=== PATIENT | female | born 1995 | race Two or more races ===

== ENCOUNTER 2021-10-05 12:35 | Outpatient (CLI) | payer OTHER ==
[~2021-10-05] VITALS: Ht 154.9 cm; Wt 68.5 kg
[2021-10-05] MEDS ORDERED: PRENTAB9 PO (12:55)
[2021-10-05] MEDS ORDERED: HOME MED LIST COMPLETE! XX SCH (12:55)
[2021-10-05 13:03] VITALS: BP 112/67
[2021-10-05] MEDS ORDERED: FLUCONAZOLE 50MG TABLET PO ONE (14:20)
[2021-10-05 14:44] LABS: APPEARANCE, URINE CLEAR (CLEAR); BACTERIA, URINE AUTO 1+ (NEGATIVE); BILIRUBIN, URINE AUTO NEGATIVE (NEGATIVE); BLOOD, URINE BLOOD NEGATIVE (NEGATIVE); COLOR, URINE STRAW (YELLOW); GLUCOSE, URINE (UA) AUTO NEGATIVE (NEGATIVE); KETONE, URINE AUTO TRACE mg/dL (NEGATIVE); LEUKOCYTE ESTERASE, URINE AUTO NEGATIVE (NEGATIVE); NITRITE, URINE AUTO NEGATIVE (NEGATIVE); PROTEIN, URINE AUTO NEGATIVE (NEGATIVE); RBC, URINE AUTO 0 /HPF (0-3); SPECIFIC GRAVITY URINE AUTO 1.001 (1.002-1.035); SQUAMOUS EPITHELIAL CELL UR AU 0 /HPF (0-6); UROBILINOGEN, URINE AUTO 0.2 mg/dL (0.0-2.0); WBC, URINE AUTO 0 /HPF (0-3)
[2021-10-05 16:36] VITALS: BP 101/62
[2021-10-05 17:44] LABS: HEMATOCRIT 34.2 % (36.0-47.0); HEMOGLOBIN 11.6 g/dl (12.0-15.5); MEAN CORPUSCULAR HEMOGLOBIN 28.9 pg (27.0-33.0); MEAN CORPUSCULAR HGB CONC 33.9 g/dl (32.0-36.5); MEAN CORPUSCULAR VOLUME 85.3 fl (80.0-96.0); PLATELET COUNT, AUTOMATED 193 10^3/uL (150-450); RED BLOOD COUNT 4.01 10^6/uL (4.00-5.40); WHITE BLOOD COUNT 11.4 10^3/uL (4.0-10.0)
[2021-10-05 17:57] LABS: INR 0.95; PROTHROMBIN TIME 13.1 SECONDS (12.7-14.5)
== END 2021-10-05 18:10 | disposition home or self-care (01) ==
LOC: M LDO 12:35
PROVIDERS: ATTEND Advanced Practice Midwife
DX: O26.893 Other specified pregnancy related conditions, third trimester (principal); R25.2 Cramp and spasm; Z3A.32 32 weeks gestation of pregnancy
CPT/HCPCS: 36415; 59025; 76815; 76820; 81001; 85027; 85384; 85610; 85730; 87086; G0378; G0463

== ENCOUNTER 2023-09-26 11:42 | Outpatient (CLI) | payer OTHER ==
[~2023-09-26] VITALS: Ht 154.9 cm; Wt 66.1 kg
[~2023-09-26 11:42] MED LIST: PRENTAB9 PO
[2023-09-26] MEDS: LR 1,000 ML IV ONE (12:36)
== END 2023-09-26 14:30 | disposition home or self-care (01) ==
LOC: M LDO 11:42
PROVIDERS: ATTEND Obstetrics & Gynecology
DX: O26.892 Other specified pregnancy related conditions, second trimester (principal); R25.2 Cramp and spasm; Z3A.23 23 weeks gestation of pregnancy
CPT/HCPCS: 59025; 81001; G0463

== ENCOUNTER → 2023-11-01 | Outpatient (CLI) | payer OTHER ==
[2023-11-01 13:07] LABS: HEMATOCRIT 36.3 % (36.0-47.0); MEAN CORPUSCULAR HEMOGLOBIN 28.3 pg (27.0-33.0); MEAN CORPUSCULAR HGB CONC 33.1 g/dl (32.0-36.5); MEAN CORPUSCULAR VOLUME 85.6 fl (80.0-96.0); PLATELET COUNT, AUTOMATED 242 10^3/uL (150-450); RED BLOOD COUNT 4.24 10^6/uL (4.00-5.40)
[2023-11-01 13:22] LABS: GLUCOSE CHALLENGE TEST 1 HOUR 114 MG/DL (LESS THAN 140)
[2023-11-01 13:52] LABS: HIV 1&2 SCREEN NEGATIVE (NEGATIVE)
[2023-11-01 14:00] LABS: HEPATITIS C VIRUS ABY INDEX < 0.02 INDEX (<0.8)
[2023-11-01 15:05] LABS: GC DNA AMPLIFICATION NEGATIVE (NEGATIVE)
== END ==
LOC: M PLALAB 09:43
PROVIDERS: ATTEND Obstetrics & Gynecology
DX: Z34.93 Encounter for supervision of normal pregnancy, unspecified, third trimester (principal)

== ENCOUNTER → 2024-05-31 | Outpatient (RCR) | payer OTHER ==
[~2024-05-31] MED LIST changes: +COLA100C5 PO; +IBUP80TA PO; +META0.52 PO; +MULTTAB20 PO; +OXYC-517 PO; +PERCOCET PO; +PRENCHW PO
== END ==
LOC: M PT 05-03 13:18
PROVIDERS: ATTEND Obstetrics & Gynecology
DX: G89.18 Other acute postprocedural pain (principal); Z48.816 Encounter for surgical aftercare following surgery on the genitourinary system; R10.2 Pelvic and perineal pain

== ENCOUNTER 2024-07-29 06:57 | Day surgery (SDC) | payer OTHER ==
[~2024-07-29] VITALS: Ht 165.1 cm; Wt 58.9 kg
[~2024-07-29 06:57] MED LIST changes: +SERT25TA21 PO; +SERT50TA29 PO
[2024-07-29] MEDS ORDERED: fentaNYL 100 MCG/2 ML INJECTION As Ordered ONE (07:08)
[2024-07-29] MEDS ORDERED: LIDOCAINE 2% 100MG/5ML SDV (FOR ANES.) As Ordered ONE (07:08)
[2024-07-29] MEDS ORDERED: propofoL 200 MG/20 ML VIAL As Ordered ONE (07:08)
[2024-07-29] MEDS ORDERED: GLYCOPYRROLATE INJ 0.2 MG/ML 2 ML VIAL As Ordered ONE (07:09)
[2024-07-29 07:55] VITALS: TEMP 97
[2024-07-29 08:12] VITALS: BP 110/66; O2SAT 98
== END 2024-07-29 09:10 | disposition home or self-care (01) ==
LOC: M OPP 06:57
PROVIDERS: ATTEND Internal Medicine Gastroenterology
DX: Z12.11 Encounter for screening for malignant neoplasm of colon (principal); K64.8 Other hemorrhoids; Z80.0 Family history of malignant neoplasm of digestive organs; Z79.899 Other long term (current) drug therapy
CPT/HCPCS: 45378; J1596; J3010